=== PATIENT | female | born 1965 | race Caucasian/White ===

== ENCOUNTER 2023-11-19 06:53 | Day surgery (SDC) | payer OTHER, SELFPAY ==
[2023-11-19 07:13] VITALS: BP 144/75; PULSE 63; RESP 18; TEMP 36.1; O2SAT 98
[2023-11-19] MEDS: Lactated Ringers 1,000 ML 80 ML IV (07:45)
--- NOTE | 2023-11-19 07:49 | W.COLOREPORT ---
Date of service: 11/19/23 Time of Service: 07:49 Colonoscopy Report Procedure Description: ROCEDURES PERFORMED: 1. Colonoscopy PREOPERATIVE DIAGNOSIS: Surveillance/screening colonoscopy POSTOPERATIVE DIAGNOSIS: Normal colon SURGEON: Ed Pulliam MD INDICATION FOR PROCEDURE: the patient is a 58-year-old woman who does not have any symptoms. She does not have a family history of colon cancer. She had 1 prior colonoscopy more than 10 years ago that was reportedly normal. FINDINGS: No inflammation. No polyps. No diverticular disease. Her colon is notably subjectively redundant throughout. No obvious hemorrhoid disease. SURVEILLANCE interval/FOLLOW-UP: 10 years SPECIMENS: None EBL: Minimal COMPLICATIONS: None QUALITY of prep: Excellent Procedure in detail: The patient gave written consent and was in agreement with the indications, the potential risks as well as the benefits of the procedure. They were taken to the endoscopy suite and laid in the left lateral decubitus position. A timeout was performed and anesthesia was administered which was tolerated well. I started the procedure. Digital rectal and visual examination was performed and grossly within normal limits. A well-lubricated flexible colonoscope was then introduced and passed without any notable difficulty all the way to the cecum identified by the ileocecal valve and the appendiceal orifice. The scope was then slowly withdrawn with the above-noted findings. The patient tolerated the procedure well and was taken to the PACU in hemodynamically stable condition.
--- NOTE | 2023-11-19 07:50 | W.PM.DSUDISC ---
Date of service: 11/19/23 Time of Service: 07:50 Discharge Plan Disposition Patient Disposition: Home Condition: Good Discharge Details Attending Provider: Tj Pulliam Primary Care Provider: Fazal Conklin Home Meds and New Rx's Prescriptions: No Action bupropion HCl 150 mg tablet extended release 24 hr 150 mg PO QAM escitalopram oxalate [Lexapro] 10 mg tablet 10 mg PO DAILY propranolol 20 mg tablet 20 mg PO BID PRN bisacodyl 5 mg tablet,delayed release (DR/EC) 5 mg PO ONCE Qty: 4 0RF Rx Instructions: Per Colonoscopy bowel prep instructions polyethylene glycol 3350 17 gram/dose powder 238 g PO ONCE Qty: 238 0RF Rx Instructions: For Colonoscopy bowel prep, as directed by office estradiol [Estrace] 0.01 % (0.1 mg/gram) cream 1 g vaginal QWEEK Discharge Instructions Additional Instructions: FINDINGS: No polyps were found. No inflammation. Everything looks healthy and normal. Repeat another colonoscopy in 10 years. Stand Alone Forms: Colonoscopy Post Instructions Activity:: Activity as Tolerated Diet:: As Tolerated
--- NOTE | 2023-11-19 08:16 | ANES.PREOP_ITS ---
General Info Date of Service Date Performed: 11/19/23 Height: 5 ft 2 in Weight: 59.9 kg Body Mass Index (BMI): 24.1 Surgical Procedure: Operation Date: 11/19/23 08:20 Proposed Procedure Side Surgeon p Ines Pulliam MD Meds Allergies and Home Medications Allergies Allergy/AdvReac Type Severity Reaction Status Date / Time cat dander Allergy Intermediate Other (See Verified 11/19/23 07:17 Comment) house dust Allergy Intermediate Other (See Verified 11/19/23 07:17 Comment) dextromethorphan AdvReac Intermediate Other (See Verified 11/19/23 07:17 Comment) Home Medication ?Medication ?Instructions ?Recorded bupropion HCl 150 mg 24 hr tablet, 150 mg PO QAM 10/31/23 extended release escitalopram oxalate 10 mg tablet 10 mg PO DAILY 10/31/23 (Lexapro) propranolol 20 mg tablet 20 mg PO BID PRN 10/31/23 bisacodyl 5 mg tablet,delayed 5 mg PO ONCE Colonoscopy Bowel 11/06/23 release Prep #4 tabs polyethylene glycol 3350 17 238 g PO ONCE #238 grams 11/06/23 gram/dose oral powder estradiol 0.01% (0.1 mg/gram) 1 g vaginal QWEEK 11/19/23 vaginal cream (Estrace) Current Visit Medications: Current Medications Generic Name Dose Route Start Last Admin Trade Name Freq PRN Reason Stop Dose Admin Ringer's Solution 1,000 mls @ 80 mls/hr 11/19/23 06:00 IV 11/19/23 23:59 INFUSION AIME IV Miscellaneous Supplies 1 each 11/19/23 06:00 Iv Access IV 11/19/23 23:59 DIRECTED AIME Sodium Chloride 0 ml 11/19/23 06:00 Normal Saline Flush 10 Ml Syr IV 11/19/23 23:59 PRN PRN Sodium Chloride 0 ml 11/19/23 06:00 Normal Saline 10 Ml Vial IJ 11/19/23 23:59 DIRECTED PRN Sterile Water 0 ml 11/19/23 06:00 Water,Injection,Sterile 10 Ml Vial IJ 11/19/23 23:59 DIRECTED PRN PFSH Active Problems Active Problems: Problem Status Onset Code Back pain Acute M54.9 Joint pain Acute M25.50 Anxiety Chronic F41.9 Depression Chronic F32.A IBS (irritable bowel syndrome) Chronic K58.9 Osteoporosis Chronic M81.0 Medical History Medical History Osteoarthritis High cholesterol Surgical History Surgical History Hx of breast biopsy Hx of colonoscopy H/O midurethral sling procedure (~2011) Hx of section (~1998) Hx of tooth extraction (~1981) [place] Te[place] Tobacco Smoking/Tobacco Use Status: Never Alcohol Alcohol Intake: never Substance Use Substance use: Never Substance use type: does not use Vital Signs and Lab Results Vital Signs Most Recent Vital Signs in EMR: Most Recent Vital Signs Temp Pulse Resp BP Pulse Ox 36.1 C L 63 18 144/75 H 98 11/19/23 07:13 11/19/23 07:13 11/19/23 07:13 11/19/23 07:13 11/19/23 07:13 Lab Results Blood Type / Crossmatch: No Data to Display Complete Blood Count: No Data to Display Complete Metabolic Panel: No Data to Display Liver Function Panel: No Data to Display Coagulation Panel: No Data to Display Cardiac Panel: No Data to Display Arterial Blood Gas: No Data to Display Venous Blood Gas: No Data to Display Pancreas Panel: No Data to Display Thyroid Panel: No Data to Display Infectious Disease: No Data to Display Blood Cultures: No Data to Display Toxicology Panel: No Data to Display Anesthesia Assessment and Plan Anesthesia History Personal History: No History of Anesthesia Complications Family History: No Family History of Anesthesia Complications Exercise Tolerance Exercise Tolerance: Metabolic Equivalents>4 Pertinent Negatives Pertinent Negatives: No Symptoms of GERD Cardiac & Pulmonary Exam Cardiac Exam: Normal S1/S2 Heart Sounds Pulmonary Exam: Clear Bilateral Breath Sounds Implantable Cardiac Device Does patient have a Pacemaker or an ICD?: No Airway Exam Known Difficult Airway: No Mallampati Class: 2 Mouth Opening: Normal (> 3cm) Thyromental Distance: Greater than 3 cm Neck Range of Motion: Full ROM (slight limitation) Neck Circumference: Normal Teeth Condition: Normal Dentition Airway Comments: Kyphotic and scoliotic ASA Classification ASA Score: ASA 2 Emergency Case?: No NPO Status NPO Status: NPO Clears >2 hours, Solids >8 hours Anesthesia Plan Resuscitation Status: Full Code Anesthesia Technique: General Anesthesia Airway Planned: Natural Airway Monitors Used: Standard Monitors
[2023-11-19 08:17] VITALS: BMI 24.1
[2023-11-19 08:58] VITALS: BP 113/72; PULSE 65; RESP 16; TEMP 37; O2SAT 98
--- NOTE | 2023-11-19 09:12 | W.ANESPOSTOP ---
Postoperative Evaluation Date, Time and Location Date Performed: 11/19/23 Time Performed: 09:12 Patient Location: Day Surgery Unit Vital Signs Most Recent Imported Vital Signs: Most Recent Vital Signs Temp Pulse Resp BP Pulse Ox 37 C 65 16 113/72 98 11/19/23 08:58 11/19/23 08:58 11/19/23 08:58 11/19/23 08:58 11/19/23 08:58 Pain Score Most Recent Pain Score: Most Recent Pain Score Pain Level 0 11/19/23 08:58 Assessment Mental Status: Arousable with meaningful communication Airway and Respiratory Function: Patent airway with normal (patient baseline) respiratory exam Cardiovascular Function: Hemodynamically Stable Hydration Status: Adequately Hydrated Nausea & Vomiting: No Nausea or Vomiting Pain: Pt. Denies Any Pain Peripheral Nerve Block: Patient did not receive a nerve block
[2023-11-19 09:21] VITALS: BP 129/71; PULSE 57; RESP 16; TEMP 36.8; O2SAT 98
== END 2023-11-19 09:45 | disposition home or self-care (01) ==
PROVIDERS: PCP Family Medicine; Visit Provider Student in an Organized Health Care Education/Training Program
PROC: 0DJD8ZZ Inspection of Lower Intestinal Tract, Via Natural or Artificial Opening Endoscopic (ICD-10-PCS; CPT 45378; principal; 2023-11-19 08:15)
DX: Z12.11 Encounter for screening for malignant neoplasm of colon (principal)
CPT/HCPCS: 45378; 00123; J2001; J2704